=== PATIENT | female | born 2000 | race Caucasian/White ===

== ENCOUNTER 2025-01-17 12:46 | Emergency (ER) | payer BC, OTHER ==
[~2025-01-17] VITALS: Ht 167.6 cm; Wt 93.7 kg
[2025-01-17 12:49] VITALS: TEMP 96.8
[2025-01-17 14:54] LABS: URINE HCG POSITIVE (NEG)
[2025-01-17 14:56] LABS: LEUKOCYTE ESTERASE ,URINE NEGATIVE (Neg); NITRITES, URINE NEGATIVE (Neg); OCCULT BLOOD,URINE LARGE (Neg)
[2025-01-17 14:58] LABS: UA COLLECTION TYPE CLN CATCH MIDSTREAM
[2025-01-17 15:10] LABS: MUCUS STRANDS FEW /LPF (Neg); SQUAMOUS EPITHELIAL CELL,UR FEW /LPF (FEW)
--- NOTE | 2025-01-17 16:41 | Physician Documentation ---
History of Present Illness ~ Chief Complaint: Complications Stated Complaint: COMPLICATIONS Time Seen by MD: 14:59 Primary Medical Doctor: generations of women OBGYN Source: patient Mode of Arrival: POV Exam Limitations: no limitations HPI Patient presents secondary to complications. She states she is eight weeks gestation by last menstrual cycle. one, para 0. Planes of a one- week history of cramping and some blood with dark brown discharge for the past week. No fevers or chills. No blood in the urine. No dysuria. Was asked, but otherwise denies review of systems. Medication Reconciliation Allergies: Coded Allergies: No Known Allergies (Unverified , 01/17/25) Past Medical History Past Medical History: No Pertinent History Past Surgical History: no surgical history Smoking Status: Former smoker Alcohol Use: None Drug Use: none Lives with: Family Lives In: Home Occupation: student, child Review of Systems ROS Review of systems negative except documented in HPI. Physical Exam Physical Exam Vital Signs: Temperature: 96.8, Source: Temporal, Heart Rate: 94, Respiratory Rate: 16, BP: 112/65, Pulse Oximetry: 98, Weight: 93.700 Oxygen Flow Rate: 0 Pulse Oximetry Reflects: adequate oxygenation Physical Exam General: Awake, alert, oriented. No apparent distress Respiratory: Lungs are clear to auscultation bilaterally. No respiratory distress. Chest: Normal shape and size. No accessory muscle use. Cardiovascular: Regular rate and rhythm. S1-S2. No murmur, gallop, rub. Gastrointestinal: Abdomen is soft. Nontender to palpation. Bowel sounds present. Psychiatric: Normal mood and affect. Skin: Normal color. Warm and dry. Progress Results/Orders Results/Orders Orders - TENA HARTMAN PREVENTATIVE MAINTENANCE TECHNICIAN US OB (01/17/25 15:59) Completed Orders - TENA HARTMAN PREVENTATIVE MAINTENANCE TECHNICIAN US OB (01/17/25 15:59) Vital Signs 01/17/25 01/17/25 01/17/25 12:49 14:47 16:53 Temp 96.8 Pulse 94 70 Resp 16 16 B/P (MAP) 112/65 112/60 Pulse Ox 98 97 O2 Flow Rate 0 Laboratory Tests Test 01/17/25 13:38 01/17/25 14:45 HCG Beta Subunit 13002 Urine Specimen Description Cln catch midstream Urine Color Yellow Urine Clarity Clear Urine pH 6.0 Urine Specific [place] 1.010 Urine Protein Negative Urine Glucose (UA) Negative Urine Ketones Negative Urine Occult Blood Large H Urine Nitrite Negative Urine Bilirubin Negative Urine Urobilinogen 0.2 Urine Leukocyte Esterase Negative Urine RBC 10-20 Urine WBC 0-4 Urine Squamous Epithelial Cells Few Urine Bacteria Few Urine Mucus Few Urine Culture Indicated Not ind Volume Urine Centrifuged 10 ml Urine HCG, Qualitative Positive Urine Comment Medical Decision Making Additional information obtaine: family Findings Patient who is one para 0 presents secondary to abdominal cramping and brown discharge/bleeding. She states she has had this brownish discharge for a week with spotting. Had cramping that is described as not as bad as bad. Cramps. She has thought to be about eight weeks gestation beat. Her last menstrual cycle. Given her complaints a ultrasound was completed that shows a viable fetus with strong heart rate at 177 beats per minute and approximately six weeks two days gestation. Reassurance was provided. She has a an appointment to follow up with an Ob next week. She is taking vitamins. Warning signs and symptoms were reviewed. She is discharged home in stable condition. Urine was reviewed and there is no urinary tract infection. HCG levels are reassuring. Ultrasound reviewed with patient and spouse. Differential Dx:Considerations: Include: -complete, - threatened, Abruptio placentae, Discomfort of , Ectopic , Ectopic preg.-ruptured, demise, UTI Departure Time of Disposition: 16:39 Disposition: 01 HOME / SELF CARE / HOMELESS Impression: Primary Impression: Qualified Codes: Z3A.01 - Less than 8 weeks gestation of Discharge Instructions: Abdominal Pain During , [id number] Additional Instructions: Your ultrasound shows a viable fetus at about six weeks two days gestation. Your hCG levels are reassuring. Your clinical presentation is also reassuring. I do not currently suspect that you are having a miscarriage based on the clinical presentation and laboratory findings. Recommend that you keep follow up with your OB. Recommend that you keep taking vitamins. Please return for new or worsening symptoms. Referrals: NO PRIMARY CARE PROVIDER (PCP) Education Educated: Patient, Family Educated regarding: diagnosis, treatment, need for follow up Signature Scribe Signature: No scribe Attestation: The note accurately reflects work and decisions made by me.Tena Gary NP 01/17/25 17:37 This note was created with the assistance of voice recognition software whereby errors in grammar, syntax, and/or spelling may have occurred despite active proofreading efforts by the author. Please do not hesitate to contact the provider for clarification or for questions regarding the content of this document. TENA HARTMAN NP Jan 17, 2025 16:41
[2025-01-17 16:53] VITALS: BP 112/60; PULSE 70; RESP 16; O2SAT 97
--- NOTE | 2025-01-17 16:53 | RADIOLOGY REPORT ---
EXAM: US US OB HISTORY: pelvic pain 8 weeks gestation TECHNIQUE: Multiple real-time grayscale images of the gravid uterus with duplex Doppler color flow and M-mode spectral analysis. COMPARISON: None FINDINGS: Uterus measures 8.4 x 4.8 x 6 cm. There is a single live intrauterine . Gestational sac measures 2.11 cm (6 weeks 4 days). A yolk sac is visualized. [place]-rump length measures 1.1 cm (7 weeks 1 day). Cardiac activity is noted. heart rate is 177 beats per minute Right ovary measures 4.2 x 3.5 x 3.4 cm. There is a simple right ovarian cyst measuring 2.1 x 1.9 x 1.8 cm Left ovary measures 3.6 x 1.7 x 1.8 cm. Normal flow in bilateral ovaries. No free fluid or adnexal masses. IMPRESSION: Single live intrauterine measuring 7 weeks 1 day by crown-rump length. ANNA: 09/06/2025 FHR: 177 beats per minute
== END 2025-01-17 16:54 | disposition home or self-care (01) ==
LOC: ER 12:46
DX: O26.891 Other specified pregnancy related conditions, first trimester (principal); R10.20 Pelvic and perineal pain unspecified side; Z87.891 Personal history of nicotine dependence; Z3A.01 Less than 8 weeks gestation of pregnancy
CPT/HCPCS: 36415; 76801; 81001; 81025; 84702; 99284